=== PATIENT | female | born 1965 | race Caucasian/White ===

== ENCOUNTER 2021-12-12 15:18 | Emergency (ER) | payer BC, SELFPAY ==
--- NOTE | ~2021-12-12 | XR_ITS ---
EXAMINATION: XR ankle LT min 3V DATE: 12/12/2021 15:42 INDICATION: Lateral left ankle swelling post injury TECHNIQUE: Anteroposterior, oblique, mortise, and lateral views of the left ankle were obtained. COMPARISON: None. FINDINGS: Minimally displaced small avulsion fracture fragment at the distal tip of the lateral malleolus with overlying soft tissue swelling. No other fractures identified. Alignment is otherwise normal. Joint s paces are normal. No ankle joint effusion. IMPRESSION: 1. Small minimally displaced avulsion fracture distal to the lateral malleolus. Reviewed, dictated and finalized at location A. [employer]
--- NOTE | 2021-12-12 15:26 | ED.LOWEXIN ---
HPI - Extremity Injury (Lower) General Chief Complaint: Extremity Injury, Lower Stated Complaint: Left Foot Pain Time Seen by Provider: 12/12/21 15:37 Source: patient and RN notes reviewed History of Present Illness HPI Narrative: Patient is a 56-year-old female who presents the urgent care with complaints of left ankle pain. Patient states that she was at a parade in [place] today and stepped in a large pothole, rolling her left foot. Patient states that she kept the foot elevated and use ice for the duration of the parade. States that she did initially walk on the ankle without much pain however now she is having a lot of difficulty bearing weight and with flexion. Denies of other injuries from the incident. No other acute complaints. Acute distress noted. Patient aware of the plan of care. Some parts of this dictation were generated by voice recognition software and may contain typographical and/or grammatical inaccuracies. Related Data Home Medications Medication Instructions Recorded Confirmed estradiol [Divigel] 0.5 mg TOPICAL DIRECTED 12/12/21 12/12/21 levothyroxine [Synthroid] 137 mcg PO DAILY 12/12/21 12/12/21 progesterone micronized 100 mg PO DAILY 12/12/21 12/12/21 Allergies Allergy/AdvReac Type Severity Reaction Status Date / Time acetaminophen [From Vicodin] Allergy Other Verified 12/12/21 15:46 hydrocodone [From Vicodin] Allergy Other Verified 12/12/21 15:46 Review of Systems Review of Systems: CONSTITUTIONAL: Denies fever, chills, or sweats. EYES: Denies visual changes, redness, or discharge. ENT: Denies rhinorrhea, congestion, sore throat, or otalgia. CARDIOVASCULAR: Denies chest pain, palpitations, or edema. RESPIRATORY: Denies cough or dyspnea. GASTROINTESTINAL: Denies abdominal pain, nausea, vomiting, or diarrhea. GENITOURINARY: Denies dysuria or hematuria. SKIN: Denies rash or itching. MUSCULOSKELETAL: Reports of left pain and swelling NEUROLOGIC: Denies headache, numbness, or weakness. All other systems reviewed are negative, except as documented in HPI. PMFSH Comments At the time of my signature, I reviewed and agree with the nursing past medical, surgical, social, and family history. There is no relevant family history pertinent to the patient complaint. Exam Narrative: GENERAL: This is a well-nourished, well-developed patient, in no apparent distress. HEAD: normocephalic, atraumatic. EYES: PERRL. Sclera clear/white. Vision is grossly intact. EARS: External ears normal NOSE: External nose normal with no obvious nasal discharge, nares without redness, no rhinorrhea. THROAT: Mucous membranes moist NECK: Neck supple CARDIOVASCULAR: Regular rate and rhythm without murmurs, gallops, or rubs. RESPIRATORY: Clear to auscultation. Breath sounds equal bilaterally. No wheezes, rales, or rhonchi. SKIN: warm, intact with no suspicious lesions or rash, good texture and turgor. NEURO: awake, alert, and oriented to person, place and time. There were no obvious focal neurologic abnormalities. EXTREMITIES: Mild to moderate edema to the lateral left malleolus with mild to moderate tenderness. Exacerbated pain on flexion. Full range of motion not tested due to pain. Positive strong left pedal pulse with capillary refill less than 2 seconds. No obvious deformity noted. Course Course Level of Care: Express Care Visit Vital Signs Vital signs: Vital Signs Temperature 99.7 F H 12/12/21 15:32 Pulse Rate 74 12/12/21 15:32 Respiratory Rate 16 12/12/21 15:32 Blood Pressure 109/72 12/12/21 15:32 Pulse Oximetry 100 12/12/21 15:32 Temperature 99.7 F H 12/12/21 15:32 Pulse Rate 74 12/12/21 15:32 Respiratory Rate 16 12/12/21 15:32 Blood Pressure 109/72 12/12/21 15:32 Pulse Oximetry 100 12/12/21 15:32 Reviewed MDM - Extremity Injury (Lower) MDM Narrative Medical decision making narrative: Reviewed x-ray results with the patient. She is aware that she does have a small
[2021-12-12 15:32] VITALS: BP 109/72; PULSE 74; RESP 16; TEMP 37.6; O2SAT 100
== END 2021-12-12 16:36 | disposition home or self-care (01) ==
PROVIDERS: Emergency Provider Nurse Practitioner Family
DX: S82.62XA Displaced fracture of lateral malleolus of left fibula, initial encounter for closed fracture (principal); W17.2XXA Fall into hole, initial encounter
CPT/HCPCS: 73610; 99214; G0463